=== PATIENT | female | born 1935 | race Caucasian/White ===

== ENCOUNTER 2016-07-07 19:23 | Emergency (ER) | payer OTHER ==
[~2016-07-07] VITALS: Ht 152.4 cm; Wt 74.0 kg
[~2016-07-07 19:23] MED LIST: ACET325T33 PO; AMLO5TAB4 PO; ASPI-664 PO; CIPR500T4 PO; HYDR-3672 PO; HYDR12.58 PO; LOSA100T7 PO; METR500T PO; ONDA4TAB8 PO; PANT40TA3 PO; PRAV20TA63 PO
[2016-07-07 20:20] VITALS: Ht 152.4 cm; Wt 74.0 kg
[2016-07-08] MEDS ORDERED: METOCLOPRAMIDE 10 MG INJ IV STA (00:29)
[2016-07-08] MEDS ORDERED: SOD CHLORIDE 0.9% 500 ML IV STA (00:29)
[2016-07-08 01:07] LABS: ADD SCAN DIFF NO
--- NOTE | 2016-07-08 01:12 | RADRPT ---
PROCEDURE: XR Chest. CLINICAL INDICATION: Abdominal Pain TECHNIQUE: Single frontal view of the chest was obtained. COMPARISON: None available FINDINGS: The cardiomediastinal silhouette is normal size. Pulmonary vasculature is within normal limits. Th e lungs are clear. There is prominent aortic calcification. No signs of pleural fluid or pneumothorax are seen. The osseous structures and soft tissues are unre markable. IMPRESSION: No evidence for active cardiopulmonary disease. Prominent aortic calcification. RPTAT: HBST .Mario Marte MD, Date Time Electronically viewed and signed by .Mario Marte MD, on 07/08/2016 01:12 .T/
[2016-07-08 01:14] LABS: ADD UMIC NO; URINE BILIRUBIN (Dip) NEGATIVE (NEGATIVE); URINE BLOOD (Dip) NEGATIVE (NEGATIVE); URINE COLOR LT. YELLOW (YELLOW); URINE GLUCOSE (Dip) NEGATIVE (NEGATIVE); URINE KETONES (Dip) NEGATIVE (NEGATIVE); URINE LEUKOCYTE ESTERASE (Dip) NEGATIVE (NEGATIVE); URINE NITRITE (Dip) NEGATIVE (NEGATIVE); URINE TOTAL PROTEIN (Dip) NEGATIVE (NEGATIVE); URINE UROBILINOGEN (Dip) 0.2 E.U./dL (0.1-1.0)
[2016-07-08 01:22] LABS: ALBUMIN 4.1 g/dl (3.3-4.9); CHLORIDE 95 mmol/L (97-110); POTASSIUM 3.7 mmol/L (3.5-5.1); SODIUM 133 mmol/L (135-144)
--- NOTE | 2016-07-08 01:23 | RADRPT ---
PROCEDURE: CT Abdomen and Pelvis without contrast. CLINICAL INDICATION: Pain. TECHNIQUE: CT scan of the abdomen and pelvis was performed on a multidetector slice CT scanner. N o intravenous contrast material was utilized. Sagittal and coronal reformatted images were obtained from the axial source images. Images were reviewed on a high-resolution PACS workstation. Exam CTDl vol = 18 mGy and DLP = 1005 Gy-cm. One of the following 3 dose reduction techniques were used: Auto mated exposure control; adjustment of the mA and/or kV according to patient size; or use of iterativ e reconstruction technique. COMPARISON: 03/17/2015 FINDINGS: There is no obstruction or ileus. There is mild left and sigmoid colon wall thickening with slightl y indistinct margins suggesting a colitis. There is no bowel wall pneumatosis. There are scattered s igmoid colon diverticuli without focal changes to suggest acute diverticulitis. The appendix is vis ualized and is normal in size. There is no evidence for acute appendicitis. There is no free flu id. There is no free gas. The liver is overall normal in size. No intrahepatic lesions are identified. The gallbladder has b een removed. There is no definite biliary ductal dilation. Pancreas is partially fatty replaced.. Spleen is unremarkable.. There are no adrenal masses. The aorta is normal caliber. There are athero sclerotic vascular calcifications. Kidneys are normal in appearance without hydronephrosis, mass or calculus. Ureters are of normal ca liber. Urinary bladder is unremarkable. Uterus is unremarkable. Ovaries are not distinctly visualized. There are degenerative changes of the lumbar spine. There is probable hemangioma in the T12 vertebr al body. Limited evaluation lung bases demonstrates mild bibasilar atelectasis. IMPRESSION: 1. Left and sigmoid colon wall thickening with slightly indistinct margins suggestive of a nonspeci fic colitis. 2. Sigmoid colon diverticulosis without focal changes to suggest acute diverticulitis. 3. No obstruction or ileus. 4. No evidence for appendicitis. 5. Status post cholecystectomy. 6. Partially fatty replaced pancreas. 7. Otherwise no significant interval change RPTAT: [facility]VK .[place] MD, MD Date Time Electronically viewed and signed by .[place] MD, on 07/08/2016 01:23 .K/
[2016-07-08 01:24] LABS: ANION GAP 15 (8-16); BILIRUBIN,INDIRECT 0.5 mg/dl (0-1.1); BILIRUBIN,TOTAL 0.5 mg/dl (0.2-1.3); CARBON DIOXIDE 27 mmol/L (21-31)
[2016-07-08 01:25] LABS: ALANINE AMINOTRANSFERASE 24 IU/L (13-69); ALBUMIN/GLOBULIN RATIO 1.46; ALKALINE PHOSPHATASE 72 IU/L (42-121); ASPARTATE AMINO TRANSFERASE 26 IU/L (15-46); BLOOD UREA NITROGEN 13 mg/dl (7-20); CALCIUM 9.1 mg/dl (8.4-10.2); GLUCOSE 94 mg/dl (70-220); TOTAL PROTEIN 6.9 g/dl (6.1-8.1)
[2016-07-08 01:38] LABS: BASOPHILS % 0.3 % (0.0-2.0); EOSINOPHILS % 0.2 % (0.0-7.0); HEMATOCRIT 35.1 % (37.0-47.0); HEMOGLOBIN 12.3 g/dl (12.0-16.0); LYMPHOCYTES # 2.5 10^3/ul (0.8-2.9); LYMPHOCYTES % 25.4 % (15.0-51.0); MEAN CORPUSCULAR HEMOGLOBIN 31.9 pg (29.0-33.0); MEAN CORPUSCULAR VOLUME 90.9 fl (82.0-101.0); MEAN PLATELET VOLUME 9.9 fl (7.4-10.4); MONOCYTE # 0.7 10^3/ul (0.3-0.9); NEUTROPHIL # 6.5 10^3/ul (1.6-7.5); NEUTROPHILS % 66.8 % (39.0-77.0); PLATELET COUNT 263 10^3/UL (140-415); RED BLOOD COUNT 3.86 10^6/ul (4.20-5.40); RED CELL DISTRIBUTION WIDTH 13.3 % (11.5-14.5); TROPONIN-I < 0.012 ng/ml (0.00-0.12); WHITE BLOOD COUNT 9.8 10^3/ul (4.8-10.8)
[2016-07-08] MEDS ORDERED: OMEP40CA6 PO (02:09)
[2016-07-08 02:25] VITALS: BP 126/71; PULSE 65; RESP 16
--- NOTE | 2016-07-08 07:37 | ERD ---
ER Documentation Chief Complaint Date/Time DATE: 07/08/16 TIME: 07:34 Chief Complaint AP x 3 weeks, Dizziness HPI 80-year-old female with a history of hypertension and gastritis presenting with abdominal pain for 3 weeks. She states the pain is in her upper abdomen, worse with food. She has associated heartburn at times. The pain is worse at night. It is a burning, aching pain. Currently a 3 out of 10. She has associated mild dizziness at times with nausea but no vomiting. No constipation, dysuria or diarrhea. No fevers or chills. She is currently on ranitidine but used to be on omeprazole. She is not sure why her doctor stopped the omeprazole. ROS All systems reviewed and are negative except as per history of present illness. Medications Home Meds Active Scripts Omeprazole* (Omeprazole*) 40 Mg Capsule., 40 MG PO DAILY, #30 CAP Prov:TERENCE PORRAS MD 07/08/16 Ondansetron Hcl* (Zofran*) 4 Mg Tablet, 4 MG PO Q8H Y for NAUSEA AND/OR VOMITING , #10 TAB Prov:DOUG PALMA DO 03/17/15 Metronidazole* (Flagyl*) 500 Mg Tablet, 500 MG PO TID for 10 Days, TAB Prov:DOUG PALMA DO 03/17/15 Ciprofloxacin Hcl* (Ciprofloxacin Hcl*) 500 Mg Tablet, 500 MG PO BID for 10 Days , TAB Prov:DOUG PALMA DO 03/17/15 Reported Medications Pantoprazole* (Protonix*) 40 Mg Tablet., 40 MG PO DAILY, TAB 03/17/15 Hydrochlorothiazide* (Hydrochlorothiazide*) 12.5 Mg Tablet, 12.5 MG PO DAILY, TAB 03/17/15 Hydralazine Hcl* (Hydralazine Hcl*) 50 Mg Tablet, 50 MG PO BID, TAB 03/17/15 Pravastatin Sodium* (Pravastatin Sodium*) 20 Mg Tablet, 20 MG PO HS, TAB 03/17/15 Acetaminophen* (Tylenol*) 325 Mg Tablet, 325 MG PO Q6 Y for PAIN AND OR ELEVATED TEMP, TAB 03/17/15 Amlodipine Besylate* (Norvasc*) 5 Mg Tablet, 5 MG PO DAILY, TAB 03/17/15 Aspirin* (Aspirin* EC) 81 Mg Tablet.dr, 81 MG PO DAILY, TAB 03/17/15 Losartan Potassium* (Losartan Potassium*) 100 Mg Tablet, 100 MG PO DAILY, TAB 03/17/15 Allergies Allergies: Coded Allergies: No Known Allergy (Unverified , 03/17/15) PMhx/Soc History of Surgery: Yes (liver surgery) Anesthesia Reaction: No Hx Neurological Disorder: No Hx Respiratory Disorders: No Hx Cardiac Disorders: Yes (HTN, high cholesterol) Hx Psychiatric Problems: No Hx Miscellaneous Medical Probl: Yes (hypothyroidism) Hx Alcohol Use: No Hx Substance Use: No Hx Tobacco Use: No Smoking Status: Never smoker FmHx Family History: No diabetes Physical Exam Vitals Vital Signs Date Time Temp Pulse Resp B/P Pulse Ox O2 Delivery O2 Flow Rate FiO2 07/08/16 02:25 65 16 126/71 100 Room Air 07/08/16 01:00 64 18 164/63 97 07/08/16 00:08 67 18 170/75 100 Room Air 07/07/16 20:20 97.1 98 20 158/74 98 Physical Exam Const: Well-appearing, no apparent distress Head: Atraumatic Eyes: Normal Conjunctiva ENT: Normal External Ears, Nose and Mouth. Neck: Full range of motion..~ No meningismus. Resp: Clear to auscultation bilaterally Cardio: Regular rate and rhythm, no murmurs Abd: Soft, non tender, non distended. Normal bowel sounds Skin: No petechiae or rashes Back: No midline or flank tenderness Ext: No cyanosis, or edema Neur: Awake and alert Psych: Normal Mood and Affect Result Diagram: 07/08/16 0050 07/08/16 0050 Results 24 hrs Laboratory Tests Test 07/08/16 00:50 White Blood Count 9.810^3/ul Red Blood Count 3.8610^6/ul Hemoglobin 12.3g/dl Hematocrit 35.1% Mean Corpuscular Volume 90.9fl Mean Corpuscular Hemoglobin 31.9pg Mean Corpuscular Hemoglobin Concent 35.0g/dl Red Cell Distribution Width 13.3% Platelet Count 59907^3/UL Mean Platelet Volume 9.9fl Neutrophils % 66.8% Lymphocytes % 25.4% Monocytes % 7.0% Eosinophils % 0.2% Basophils % 0.3% Nucleated Red Blood Cells % 0.0/100WBC Neutrophils # 6.510^3/ul Lymphocytes # 2.510^3/ul Monocytes # 0.710^3/ul Eosinophils # 0.010^3/ul Basophils # 0.010^3/ul Nucleated Red Blood Cells # 0.010^3/ul Urine Color LT. YELLOW Urine Clarity CLEAR Urine pH 7.0 Urine Specific [place] <=1.005 Urine Ketones NEGATIVE Urine Nitrite NEGATIVE Urine Bilirubin NEGATIVE Urine Urobilinogen 0.2 E.U./dL Urine Leukocyte Esterase NEGATIVE Urine Hemoglobin NEGATIVE Urine Glucose NEGATIVE% Urine Total Protein NEGATIVE Sodium Level 133mmol/L Potassium Level 3.7mmol/L Chloride Level 95mmol/L Carbon Dioxide Level 27mmol/L Anion Gap 15 Blood Urea Nitrogen 13mg/dl Creatinine 0.90mg/dl Glucose Level 94mg/dl Calcium Level 9.1mg/dl Total Bilirubin 0.5mg/dl Direct Bilirubin 0.00mg/dl Indirect Bilirubin 0.5mg/dl Aspartate Amino Transf (AST/SGOT) 26IU/L Alanine Aminotransferase (ALT/SGPT) 24IU/L Alkaline Phosphatase 72IU/L Troponin I < 0.012ng/ml Total Protein 6.9g/dl Albumin 4.1g/dl Globulin 2.80g/dl Albumin/Globulin Ratio 1.46 Lipase 57U/L Current Medications Medications (Trade) Dose Ordered Sig/Clare Route PRN Reason Start Time Stop Time Status Last Admin Dose Admin Sodium Chloride (NS) 500 ml @ 500 mls/hr Q1H STAT IV 07/08/16 00:29 07/08/16 01:28 DC 07/08/16 00:45 Metoclopramide HCl (Reglan) 10 mg ONCE STAT IV 07/08/16 00:29 07/08/16 00:31 DC 07/08/16 00:45 Procedures/MDM EKG: Rate/Rhythm: Normal Sinus Rhythm QRS, ST, T-waves: Left anterior fascicular block, no changes consistent w/ acute ischemia Impression: No evidence of ischemia or arrhythmia Chest x-ray is unremarkable CT abdomen and pelvis showed: IMPRESSION: 1. Left and sigmoid colon wall thickening with slightly indistinct margins suggestive of a nonspecific colitis. 2. Sigmoid colon diverticulosis without focal changes to suggest acute diverticulitis. 3. No obstruction or ileus. 4. No evidence for appendicitis. 5. Status post cholecystectomy. 6. Partially fatty replaced pancreas. 7. Otherwise no significant interval change Labs had no significant abnormalities, urinalysis was normal Patient is presenting with upper abdominal pain for about 3 weeks. Her vitals are stable and she is afebrile. I have a low suspicion for acute coronary syndrome, pulmonary embolism, aortic dissection. There is no evidence of choledocholithiasis or pancreatitis. Her CT of her abdomen shows mild colitis, which may be the reason for her pain, however I do not believe this is a bacterial infection. Her symptoms may also be secondary to her gastritis. She does admit to taking ibuprofen daily. I recommended she stop taking ibuprofen daily. I will start her on omeprazole again. I recommended she follow-up with her primary care doctor for referral for EGD. Return precautions were discussed. Patient was discharged in stable condition. Departure Diagnosis: Primary Impression: Abdominal pain Abdominal location: upper abdomen, unspecified Qualified Code: R10.10 - Pain of upper abdomen Additional Impression: Gastric acidity Condition: Stable Patient Instructions: Abdominal Pain, Unknown Cause, (Female), Gastritis Vs. Ulcer Referrals: DOCTOR,NOT ON STAFF (PCP) Additional Instructions: Seguimiento con casey mdico de atencin primaria en 1-2 casper. Regrese a la shagufta de emergencias para cualquier sntoma que empeora en las prximas 8-12 horas. TERENCE PORRAS MD Jul 08, 2016 07:37
== END 2016-07-08 02:27 | disposition home or self-care (01) ==
LOC: E/R 19:23
DX: R10.10 Upper abdominal pain, unspecified (principal); K30 Functional dyspepsia; I10 Essential (primary) hypertension; E03.9 Hypothyroidism, unspecified; Z79.82 Long term (current) use of aspirin
CPT/HCPCS: 71010; 74176; 80053; 81003; 83690; 84484; 85025; 93005; J2765; J7040; 36415; 96361; 96374